=== PATIENT | female | born 1985 | race Caucasian/White ===

== ENCOUNTER 2016-08-13 22:14 | Outpatient (CLI) | payer MEDICAID ==
[2016-08-13 22:46] VITALS: BMI 40.6
[2016-08-13 22:53] LABS: URINE BILIRUBIN NEGATIVE (NEGATIVE); URINE BLOOD 1+ (NEGATIVE); URINE GLUCOSE (UA) NEGATIVE (NEGATIVE); URINE LEUKOCYTE ESTERASE NEGATIVE (NEGATIVE); URINE NITRITE NEGATIVE (NEGATIVE); URINE PROTEIN NEGATIVE (NEGATIVE); URINE UROBILINOGEN NORMAL (0-1 mg/dl)
[2016-08-13 23:03] LABS: URINE APPEARANCE SL CLOUDY; URINE COLOR YELLOW
[2016-08-13 23:06] LABS: URINE BACTERIA 1+; URINE MUCUS 2+; URINE WBC 20-30 /hpf
== END 2016-08-13 22:15 | disposition home or self-care (01) ==
LOC: FBCOUT 22:14 → FBC 22:14 → FBCOUT 22:15
PROVIDERS: ATTEND Family Medicine
DX: O26.892 Other specified pregnancy related conditions, second trimester (principal); R10.11 Right upper quadrant pain; Z3A.22 22 weeks gestation of pregnancy
CPT/HCPCS: 81001; 59050; G0463

== ENCOUNTER 2016-08-13 23:22 | Emergency (ER) | payer MEDICAID ==
[2016-08-14 01:31] LABS: ABSOLUTE NEUTROPHIL COUNT 9.1 K/mm3 (1.8-7.7); BASO % 0.2 % (0.2-1.0); EOS # 0.1 (0.0-0.5); EOS % 0.6 % (0.9-2.9); HEMATOCRIT 33.3 % (37.0-47.0); HEMOGLOBIN 10.7 gm/l (12.0-16.0); IMM NEUT # 0.1 K/mm3 (0-0.2); IMM NEUT% 0.5 % (0-1); LYMPH # 2.3 (1.0-4.8); LYMPH % 19.1 % (15-45); MEAN CELL VOLUME 83.7 fl (81.0-99.0); MEAN CORPUSCULAR HEMOGLOBIN 26.9 pg (27.0-31.0); MEAN CORPUSCULAR HGB CONC 32.1 g/dl (33.0-37.0); MEAN PLATELET VOLUME 11.2 fl (7.4-10.4); MONO # 0.5 (0.0-0.8); MONO % 4.3 % (4-12); NEUT % 75.3 % (43-75); PLATELET COUNT 239 K/mm3 (130-400); RED CELL DISTRIBUTION WIDTH 13.9 % (11.5-14.5)
[2016-08-14 01:45] LABS: ALBUMIN 3.2 gm/dL (3.5-5.7); CALCIUM 9.3 mg/dL (8.6-10.3)
[2016-08-14 02:39] LABS: SPECIFIC GRAVITY 1.015 (1.001-1.030); URINE APPEARANCE CLEAR; URINE BILIRUBIN NEGATIVE (NEGATIVE); URINE BLOOD 1+ (NEGATIVE); URINE COLOR YELLOW; URINE GLUCOSE (UA) NEGATIVE (NEGATIVE); URINE LEUKOCYTE ESTERASE NEGATIVE (NEGATIVE); URINE NITRITE NEGATIVE (NEGATIVE); URINE PROTEIN NEGATIVE (NEGATIVE); URINE UROBILINOGEN NORMAL (0-1 mg/dl)
[2016-08-14 02:44] LABS: URINE WBC 0-1 /hpf
[2016-08-14 02:45] LABS: URINE AMORPHOUS SEDIMENT 1+; URINE BACTERIA 0; URINE EPITHELIAL CELLS FEW /hpf
--- NOTE | 2016-08-14 07:56 | US ---
ABDOMINAL-LIMITED: 08/14/2016 1:11 AM CLINICAL HISTORY: Right upper quadrant pain.. STUDY: Limited right upper quadrant ultrasound COMPARISON: none FINDINGS: Gallbladder: Wall thickness: Normal Cholelithiasis: Multiple small mobile stones are present. Pericholecystic Fluid: none Sonographic Charles's Sign: negative Bile ducts: Common duct measures 4 mm. Limited visualized Liver and RUQ structures: normal IMPRESSION: Cholelithiasis without findings of acute cholecystitis. Nuclear medicine scintigraphy could be helpful in further assessment as clinically warranted Preliminary report was provided by [facility] at approximately 0315 hours on 08/14/2016.
== END 2016-08-14 03:37 | disposition home or self-care (01) ==
LOC: ED 23:22
DX: O26.892 Other specified pregnancy related conditions, second trimester (principal); R10.11 Right upper quadrant pain; Z3A.23 23 weeks gestation of pregnancy